=== PATIENT | female | born 1945 | race Caucasian/White ===

== ENCOUNTER 2019-05-10 16:21 | Emergency (ER) | payer MEDICARE ==
[~2019-05-10] VITALS: Ht 142.2 cm; Wt 54.4 kg
[2019-05-10] MEDS ORDERED: TRIA50 PO (16:59)
[2019-05-10] MEDS ORDERED: CARV6.25 PO (17:00)
[2019-05-10] MEDS ORDERED: CITA20 PO (17:00)
[2019-05-10] MEDS ORDERED: ZOCOR20 MG PO (17:00)
[2019-05-10] MEDS ORDERED: ZYRTEC10 M2 PO (17:01)
[2019-05-10] MEDS ORDERED: Loperamide2 MG PO (17:01)
[2019-05-10] MEDS ORDERED: BUDE6HFA INH (17:02)
[2019-05-10] MEDS ORDERED: LIDOCAINE28.35 GM TOP (17:38)
== END 2019-05-10 19:35 | disposition home or self-care (01) ==
LOC: EDBD 16:21 → ER 16:21
DX: R20.8 Other disturbances of skin sensation (principal); J44.9 Chronic obstructive pulmonary disease, unspecified; I10 Essential (primary) hypertension; F17.200 Nicotine dependence, unspecified, uncomplicated; Z88.0 Allergy status to penicillin; Z79.899 Other long term (current) drug therapy
CPT/HCPCS: 70450; 99284-25

== ENCOUNTER 2021-01-25 14:20 | Day surgery (SDC) | payer MEDICARE ==
[~2021-01-25] VITALS: Ht 142.2 cm; Wt 46.5 kg
[~2021-01-25 14:20] MED LIST: ALBU90OI; BUDE6HFA INH; BUPR150ER; CARV6.25 PO; CITA20 PO; HAIR, SKIN AND1 EAC3; LIDOCAINE28.35 GM TOP; Loperamide2 MG PO; NICO21TP; TRIA50 PO; Vitamin D1000 UNI1; ZOCOR20 MG PO; ZYRTEC10 M2 PO
--- NOTE | 2021-01-25 15:11 | NUR ---
Ambulatory in Day Surgery Patient states colon prep results clear. History, Chart, Medications and Allergies reviewed before start of procedure. Pre-Op teaching done. Pt verbalizes understanding. Patient States Post-Procedure ride home has been arranged.
--- NOTE | 2021-01-25 16:44 | NUR ---
01/25/21 1644 Siobhan Quiroga History, Chart, Medications and Allergies reviewed before start of procedure.MONITOR INTACT WITH CONTINUOUS PULSE OXIMETRY AND INTERMITTENT BP.O2 VIA N/C INTACT THROUGHOUT SEDATION/PROCEDURE. 3-LEAD EKG REVIEWED WITH PHYSICIAN PRIOR TO START OF PROCEDURE.PATIENT DETERMINED TO BE ASA APPROPRIATE FOR PROPOFOL SEDATION PRIOR TO START OF PROCEDURE BY
--- NOTE | 2021-01-25 18:07 | NUR ---
Patient up to Ambulate independently. Gait steady. Discharge instructions reviewed with patient. Patient verbalizes understanding. Copy given to patient to take home. Discharged via wheelchair to private car for ride home WITH SON.
== END 2021-01-25 22:45 | disposition home or self-care (01) ==
LOC: ORSCMMR 14:20 → ORSCSDS 15:15 → ORSCMMR 15:30 → ORSCSDS 15:30 → ORSCMMR 22:45
PROVIDERS: Surgery
PROC: 0DBP8ZX Excision of Rectum, Via Natural or Artificial Opening Endoscopic, Diagnostic (ICD-10-PCS; principal; 2021-01-25 15:15)
PROC: 0DBH8ZX Excision of Cecum, Via Natural or Artificial Opening Endoscopic, Diagnostic (ICD-10-PCS; principal; 2021-01-25 15:15)
DX: K62.5 Hemorrhage of anus and rectum (principal); D12.0 Benign neoplasm of cecum; J44.9 Chronic obstructive pulmonary disease, unspecified; I10 Essential (primary) hypertension; E78.5 Hyperlipidemia, unspecified; Z87.891 Personal history of nicotine dependence; Z79.899 Other long term (current) drug therapy
CPT/HCPCS: J2704; J7120

== ENCOUNTER 2021-02-23 09:09 | Day surgery (SDC) | payer MEDICARE ==
[~2021-02-23] VITALS: Ht 142.2 cm; Wt 47.6 kg
[~2021-02-23 09:09] MED LIST changes: -ALBU90OI; +ALBU90OI INH; -BUPR150ER; +BUPR150ER PO; -HAIR, SKIN AND1 EAC3; +HAIR, SKIN AND1 EAC3 PO; -NICO21TP; +NICO21TP TOP; -Vitamin D1000 UNI1; +Vitamin D1000 UNI1 PO
--- NOTE | 2021-02-23 11:10 | NUR ---
Ambulatory in Day SurgeryBair Paws warming gown applied. History, Chart, Medications and Allergies reviewed before start of procedure.Lungs clear T/O to Auscultation. Patient confirms NPO status and agrees with scheduled surgery. Pre-Op teaching done. Pt verbalizes understanding. Patient States Post-Procedure ride home has been arranged.
--- NOTE | 2021-02-23 13:00 | NUR ---
PT DENIES PAIN. TOLERATES FLUIDS, PUDDING AND CHIPS. REVIEWED DISCHARGE INSTRUCTIONS WITH PT. PT DENIES QUESTIONS. IV DC'D INTACT.
--- NOTE | 2021-02-23 13:10 | NUR ---
Patient States Post-Procedure ride home has been arranged. Discharged via wheelchair to private car for ride home.
== END 2021-02-23 13:13 | disposition home or self-care (01) ==
LOC: ORSCMMR 09:09 → ORD 10:45 → ORSCMMR 10:45
PROVIDERS: Surgery
PROC: 0DJD8ZZ Inspection of Lower Intestinal Tract, Via Natural or Artificial Opening Endoscopic (ICD-10-PCS; principal; 2021-02-23 10:45)
DX: K62.89 Other specified diseases of anus and rectum (principal); D12.8 Benign neoplasm of rectum; I10 Essential (primary) hypertension; E78.00 Pure hypercholesterolemia, unspecified; J44.9 Chronic obstructive pulmonary disease, unspecified; Z87.891 Personal history of nicotine dependence; Z79.899 Other long term (current) drug therapy
CPT/HCPCS: 88305; J0171; J2250; J2704; J3010; J7120

== ENCOUNTER 2021-06-14 18:14 | Emergency (ER) | payer MEDICARE ==
[~2021-06-14] VITALS: Ht 142.2 cm; Wt 49.0 kg
== END 2021-06-14 19:14 | disposition home or self-care (01) ==
LOC: ER 18:14
DX: S00.03XA Contusion of scalp, initial encounter (principal); S00.83XA Contusion of other part of head, initial encounter; Z88.0 Allergy status to penicillin; J44.9 Chronic obstructive pulmonary disease, unspecified; I10 Essential (primary) hypertension; Z79.899 Other long term (current) drug therapy; Z87.891 Personal history of nicotine dependence; W01.0XXA Fall on same level from slipping, tripping and stumbling without subsequent striking against object, initial encounter
CPT/HCPCS: 70450; 99283-25

== ENCOUNTER 2022-01-22 12:51 | Inpatient (IN) | payer MEDICARE ==
[~2022-01-22] VITALS: Ht 160 cm; Wt 49.9 kg
[~2022-01-22 12:51] MED LIST changes: -CARV6.25 PO; +Carvedilol12.5 MG PO
[2022-01-22 14:11] LABS: BASOPHILS ABSOLUTE AUTO 0.03 K/mm3 (0.00-0.23); BASOPHILS PERCENT AUTO 0 % (0-2); EOSINOPHILS ABSOLUTE AUTO 0.27 K/mm3 (0.00-0.68); EOSINOPHILS PERCENT AUTO 4 % (0-6); Hematocrit 37.8 % (33.0-51.0); Hemoglobin 12.4 g/dL (11.5-16.0); IMMATURE GRAN ABSOLUTE AUTO 0.06 K/mm3 (0.00-0.10); IMMATURE GRAN PERCENT AUTO 1 % (0-1); LYMPHOCYTES ABSOLUTE AUTO 1.46 K/mm3 (0.84-5.20); LYMPHOCYTES PERCENT AUTO 21 % (21-46); MONOCYTES ABSOLUTE AUTO 0.71 K/mm3 (0.16-1.47); MONOCYTES PERCENT AUTO 10 % (4-13); Mean Corpuscular HGB Conc 32.8 g/dL (31.5-36.5); Mean Corpuscular Volume 97 fL (80-100); Mean Platelet Volume 9.4 fL (9.1-12.4); NEUTROPHILS ABSOLUTE AUTO 4.45 K/mm3 (1.96-9.15); NEUTROPHILS PERCENT AUTO 64 % (41-73); Platelet Count 224 K/mm3 (150-400); RDW Coefficient Variation 12.8 % (11.7-14.2); RDW Standard Deviation 45.4 fL (35.1-46.3); Red Blood Cell Count 3.88 M/mm3 (3.80-5.20); White Blood Cell Count 6.98 K/mm3 (4.00-11.30)
[2022-01-22 14:31] LABS: Albumin, Blood 3.5 g/dL (3.4-5.0); Bilirubin, Total 0.4 mg/dL (0.1-1.0); Bun/Creatinine Ratio 28.6 (12.0-20.0); Calcium, Blood 9.4 mg/dL (8.5-10.1); Creatinine, Blood 0.53 mg/dL (0.40-1.00); Globulin, Blood 3.5 g/dL (2.2-4.0); Potassium, Blood 4.1 mmol/L (3.5-5.5)
[2022-01-22 17:03] LABS: Influenza A, PCR NEGATIVE (NEGATIVE); Influenza B, PCR NEGATIVE (NEGATIVE); Resp Syncytial Virus, PCR NEGATIVE (NEGATIVE); SARS-Cov-2 (COVID-19) PCR, MMC NEGATIVE (NEGATIVE)
--- NOTE | 2022-01-22 22:49 | NUR ---
ADMIT NOTE 76 YR OLD FEMALE ADMITTED TO FLOOR FROM THE ED WITH DX COPD WITH ACUTE EXACERBATION. ALERT AND ORIENTED. UP WITH ASSIST. ON O2 PER NC. RT WAS AT BEDSIDE TO EVAL AND TREAT. CALL LIGHT IN REACH. LUNG SOUNDS DIMINISHED TO AUSCULTATION. CALL LIGHT IN REACH.
--- NOTE | 2022-01-23 03:27 | NUR ---
JEWEL BEARING BROACHER SUMMARY WAS ADMITTED EARLIER IN THE SHIFT WITH DX OF ACUTE EXACERBATION OF COPD. PLACED ON O2 AND RECEIVED MEDS TO HELP WITH BREATHING - SEE MAR FOR DETAILS. REQUESTED AND RECEIVED SNACK AT BEDTIME. HAS BEEN RSTING QUIETLY WITH FEW INTERUPTIONS SINCE. LUNG SOUNDS DIMINISHED IN ALL LOBES PER AUSCULTATION. CALL LIGHT IN REACH. WILL CONTINUE TO MONITOR. VSS.
[2022-01-23 05:08] LABS: BASOPHILS ABSOLUTE AUTO 0.01 K/mm3 (0.00-0.23); BASOPHILS PERCENT AUTO 0 % (0-2); EOSINOPHILS PERCENT AUTO 0 % (0-6); Hematocrit 39.3 % (33.0-51.0); Hemoglobin 13.1 g/dL (11.5-16.0); IMMATURE GRAN ABSOLUTE AUTO 0.02 K/mm3 (0.00-0.10); IMMATURE GRAN PERCENT AUTO 0 % (0-1); LYMPHOCYTES PERCENT AUTO 16 % (21-46); MONOCYTES ABSOLUTE AUTO 0.05 K/mm3 (0.16-1.47); MONOCYTES PERCENT AUTO 1 % (4-13); Mean Corpuscular HGB 32.2 pg (26.0-34.0); Mean Corpuscular HGB Conc 33.3 g/dL (31.5-36.5); Mean Corpuscular Volume 97 fL (80-100); Mean Platelet Volume 9.4 fL (9.1-12.4); NEUTROPHILS ABSOLUTE AUTO 4.04 K/mm3 (1.96-9.15); NEUTROPHILS PERCENT AUTO 82 % (41-73); Platelet Count 238 K/mm3 (150-400); RDW Coefficient Variation 12.8 % (11.7-14.2); RDW Standard Deviation 45.5 fL (35.1-46.3); Red Blood Cell Count 4.07 M/mm3 (3.80-5.20); White Blood Cell Count 4.92 K/mm3 (4.00-11.30)
[2022-01-23 05:28] LABS: Albumin, Blood 3.1 g/dL (3.4-5.0); Albumin/Globulin Ratio 0.8 (0.8-1.8); Bilirubin, Total 0.4 mg/dL (0.1-1.0); Bun/Creatinine Ratio 32.4 (12.0-20.0); Calcium, Blood 9.1 mg/dL (8.5-10.1); Creatinine, Blood 0.62 mg/dL (0.40-1.00); Globulin, Blood 3.8 g/dL (2.2-4.0); Potassium, Blood 4.1 mmol/L (3.5-5.5); Total Protein, Blood 6.9 g/dL (6.4-8.2)
--- NOTE | 2022-01-23 19:36 | NUR ---
SHIFT SUMMARY 76-YEAR-OLD FEMALE, A&O X4. 1-PERSON ASSIST. 20G TO R WRIST. RA AT HOME, 2L NC AT THIS TIME. TELEMETRY SR BBB, HR 71. FALL AT HOME ON 01/16 WHERE SHE DISLOCATED L SHOULDER WITH REDUCTION, CURRENTLY IN SLING. DENIES PAIN. SKIN TEAR TO L SHOULDER WITH FLAP INTACT, COVERED WITH MEPILEX. PT AND OT ORDERED. CONTINUE TO MONITOR.
--- NOTE | 2022-01-24 04:27 | NUR ---
SHIFT SUMMARY; PT IS AXO X4, PT IS PLEASANT AND WAS COOPERATIVE WITH CARE THROUGHOUT THE NIGHT. PT IS CURRENTLY ON 2L O2 VIA NC, COMPARED TO THE PTS BASELINE OF RA AT HOME. THE PTS LUNG SOUNDS REMIAN DIMINISHED UPON AUSCULTATION. THE PT RESTED IN BED ALL NIGHT ALTHOUGH SHE DID NOT ACTUALLY SLEEP MUCH. PT HAD NO ACUTE MEDICAL CHANGES OVERNIGHT. PTS SLING REMAINS IN PLACE ON THE L ARM. WELL THE MEPILEX ON THE L ELBOW REMAINS INTACT OVER THE SKIN TEAR. PT IS CURRENTLY RESTING IN BED WITH THE BED IN THE LOWEST POSITION AND THE CALL LIGHT IN HAND.
[2022-01-24] MEDS ORDERED: FLUTICASONE-SA1 EAC2 INH (13:12)
[2022-01-24] MEDS ORDERED: IPRAT-ALBUT 0.5-3 ML INH (13:14)
[2022-01-24] MEDS ORDERED: Prednisone10 MG PO (13:15)
--- NOTE | 2022-01-24 15:30 | NUR ---
DISCHARGE SUMMARY PATIENT IS ALERT AND ORIENTED. PATIENT HAS HAD NO ACUTE EVENTS THIS SHIFT. VITAL SIGNS WERE REVIEWED. PATIENT HAS BEEN IND IN ROOM THIS SHIFT. PATIENT DOES NOT REQUIRED HOME 02 PER RT. PATIENT IS BEING DISCHARGED HOME WITH SON TRANSPORTING.
== END 2022-01-24 15:12 | disposition home or self-care (01) | DRG 189 ==
LOC: ER 12:51 → MEDS 12:52
PROVIDERS: Physician Assistant; Student in an Organized Health Care Education/Training Program; ADMIT Internal Medicine
DX: J96.01 Acute respiratory failure with hypoxia (principal); J44.1 Chronic obstructive pulmonary disease with (acute) exacerbation; J84.9 Interstitial pulmonary disease, unspecified; R64 Cachexia; Z68.1 Body mass index [BMI] 19.9 or less, adult; I10 Essential (primary) hypertension; R26.9 Unspecified abnormalities of gait and mobility; Z51.5 Encounter for palliative care; I44.7 Left bundle-branch block, unspecified; S43.005D Unspecified dislocation of left shoulder joint, subsequent encounter; Z88.0 Allergy status to penicillin; Z91.013 Allergy to seafood; Z79.899 Other long term (current) drug therapy; Z87.891 Personal history of nicotine dependence; Z79.51 Long term (current) use of inhaled steroids; Z20.822 Contact with and (suspected) exposure to COVID-19
CPT/HCPCS: 0241U; 36415; 71046; 73070; 80053; 83880; 84484; 85025; 93005; 93010; 94640; 94664; 94760; 94761; 96372; 96374; 96375; 96376; 97116; 97162; 97165; 97530; 97535; 99285-25; A9270; G0378; J1100; J1650; J2930

== ENCOUNTER 2022-09-07 08:07 | Day surgery (SDC) | payer MEDICARE ==
[~2022-09-07] VITALS: Ht 142.2 cm; Wt 46.9 kg
[~2022-09-07 08:07] MED LIST changes: +FLUTICASONE-SA1 EAC2 INH; +IPRAT-ALBUT 0.5-3 ML INH; +Prednisone10 MG PO
[2022-09-07 08:53] VITALS: BP 152/88
--- NOTE | 2022-09-07 09:08 | NUR ---
09/07/22 0[address] Trejo [address]B PER DR. TEJADA. WARM BLANKETS PROVIDED X3. PT COMFORTABLE CAN BE. NO QUESTIONS OR CONCERNS AT THIS TIME. AFTER DISCUSSION WITH DR. TEJADA PT ELECTS TO PROCEED WITH BLOCK OF LEFT SHOULDER.
== END 2022-09-07 09:50 | disposition home or self-care (01) ==
LOC: ORSCSDS 08:07
DX: S46.002A Unspecified injury of muscle(s) and tendon(s) of the rotator cuff of left shoulder, initial encounter (principal); Z53.9 Procedure and treatment not carried out, unspecified reason
CPT/HCPCS: A9270; J0171; J0690; J2250; J2704; J3010

== ENCOUNTER 2022-12-29 19:25 | Inpatient (IN) | payer MEDICARE ==
[~2022-12-29] VITALS: Ht 139.7 cm; Wt 45.4 kg
[2022-12-29 20:32] LABS: BASOPHILS ABSOLUTE AUTO 0.05 K/mm3 (0.00-0.23); BASOPHILS PERCENT AUTO 1 % (0-2); EOSINOPHILS PERCENT AUTO 2 % (0-6); Hematocrit 32.1 % (33.0-51.0); Hemoglobin 10.4 g/dL (11.5-16.0); IMMATURE GRAN ABSOLUTE AUTO 0.04 K/mm3 (0.00-0.10); IMMATURE GRAN PERCENT AUTO 1 % (0-1); LYMPHOCYTES ABSOLUTE AUTO 1.79 K/mm3 (0.84-5.20); LYMPHOCYTES PERCENT AUTO 21 % (21-46); MONOCYTES ABSOLUTE AUTO 0.87 K/mm3 (0.16-1.47); MONOCYTES PERCENT AUTO 10 % (4-13); Mean Corpuscular HGB 30.5 pg (26.0-34.0); Mean Corpuscular HGB Conc 32.4 g/dL (31.5-36.5); Mean Corpuscular Volume 94 fL (80-100); Mean Platelet Volume 9.3 fL (9.1-12.4); NEUTROPHILS PERCENT AUTO 66 % (41-73); Platelet Count 241 K/mm3 (150-400); RDW Coefficient Variation 12.7 % (11.7-14.2); RDW Standard Deviation 43.6 fL (35.1-46.3); Red Blood Cell Count 3.41 M/mm3 (3.80-5.20); White Blood Cell Count 8.75 K/mm3 (4.00-11.30)
[2022-12-29 20:56] LABS: Albumin, Blood 3.4 g/dL (3.4-5.0); Albumin/Globulin Ratio 0.9 (0.8-1.8); Bilirubin, Total 0.6 mg/dL (0.1-1.0); Calcium, Blood 8.8 mg/dL (8.5-10.1); Creatinine, Blood 0.78 mg/dL (0.40-1.00); Globulin, Blood 3.6 g/dL (2.2-4.0); Potassium, Blood 3.7 mmol/L (3.5-5.5)
[2022-12-30 02:19] LABS: Base Excess Venous 1.6 mmol/L; Bicarbonate Venous 25.5 mmol/L (24.0-30.0); PCO2 Venous 46.2 mmHg (38-42); pH Blood Venous 7.37 (7.34-7.37)
[2022-12-30 04:02] VITALS: BP 145/94
--- NOTE | 2022-12-30 04:32 | NUR ---
SHIFT SARA, PT ARRIVED AND WAS TRANSFRED TO BED FROM [facility] WITH SHEET AND 3 PERSON TRANSFER. PT ALERT ORIENTED BUT VERY FORGETFULL. PT VERY WET CLOTHING CHANGED OLD BEDDING REMOVED NEW PURE WICK PLACED . SCDS APPLYED. RT CAME AND PLACED CONTIUSE PULSE OX ON AND GAVE AN RT TX. PT HAS ON AN IMOBILIZER FROM A SHOULDER SURGERY FIVE DAYS AGO TO HER LEFT ARM/SHOLDER, CMS GOOD. SKIN INTACT . PT HAS CORNS TO BILAT BOTTOMS OF HER FEET. PT CAN NNOT TELL WHAT MEDS SHE TALKES AT HOME , BUT SAID SON COULD BRING IN A LIST OF MEDICATIONS. CALL LIGHT IN REACH.
[2022-12-30 05:07] LABS: BASOPHILS ABSOLUTE AUTO 0.03 K/mm3 (0.00-0.23); BASOPHILS PERCENT AUTO 0 % (0-2); EOSINOPHILS ABSOLUTE AUTO 0.01 K/mm3 (0.00-0.68); EOSINOPHILS PERCENT AUTO 0 % (0-6); Hematocrit 32.7 % (33.0-51.0); Hemoglobin 10.7 g/dL (11.5-16.0); IMMATURE GRAN ABSOLUTE AUTO 0.09 K/mm3 (0.00-0.10); IMMATURE GRAN PERCENT AUTO 1 % (0-1); LYMPHOCYTES ABSOLUTE AUTO 0.93 K/mm3 (0.84-5.20); LYMPHOCYTES PERCENT AUTO 10 % (21-46); MONOCYTES ABSOLUTE AUTO 0.26 K/mm3 (0.16-1.47); MONOCYTES PERCENT AUTO 3 % (4-13); Mean Corpuscular HGB 30.1 pg (26.0-34.0); Mean Corpuscular HGB Conc 32.7 g/dL (31.5-36.5); Mean Corpuscular Volume 92 fL (80-100); Mean Platelet Volume 9.2 fL (9.1-12.4); NEUTROPHILS ABSOLUTE AUTO 8.12 K/mm3 (1.96-9.15); NEUTROPHILS PERCENT AUTO 86 % (41-73); Platelet Count 269 K/mm3 (150-400); RDW Coefficient Variation 12.5 % (11.7-14.2); RDW Standard Deviation 42.4 fL (35.1-46.3); Red Blood Cell Count 3.56 M/mm3 (3.80-5.20); White Blood Cell Count 9.44 K/mm3 (4.00-11.30)
[2022-12-30 05:28] LABS: Albumin, Blood 3.4 g/dL (3.4-5.0); Albumin/Globulin Ratio 0.9 (0.8-1.8); Bilirubin, Total 0.9 mg/dL (0.1-1.0); Bun/Creatinine Ratio 17.3 (12.0-20.0); Calcium, Blood 8.8 mg/dL (8.5-10.1); Creatinine, Blood 0.75 mg/dL (0.40-1.00); Globulin, Blood 3.8 g/dL (2.2-4.0); Potassium, Blood 3.4 mmol/L (3.5-5.5); Total Protein, Blood 7.2 g/dL (6.4-8.2)
[2022-12-30 07:36] VITALS: BP 126/74
[2022-12-30 14:32] VITALS: BP 134/80
--- NOTE | 2022-12-30 17:38 | NUR ---
SHIFT SUMMARY PATIENT TITRATED TO 2LITERS O2 VIA NC, CONTINUOUS PULSE OX IN PLACE. PUREWICK IN USE AT THIS TIME FOR DIURESING. SHOULDER HAS DRESSING IN PLACE AND IMMOBILIZER IN PLACE, NO C/O PAIN THIS SHIFT. GIVEN ZOFRAN FOR NAUSEA AND VOMITING. WILL CONTINUE TO MONITOR
[2022-12-30 19:41] VITALS: BP 103/83
[2022-12-31 03:16] VITALS: BP 129/75
--- NOTE | 2022-12-31 04:49 | NUR ---
SHIFT SUMMARY: NO ACUTE EVENTS. ON O2 @ 2 L/MIN NC, WITH O2 SATS 92-94%. A&O X 4, PLEASANT. MEDICATED WITH TYLENOL FOR L SHOULDER PAIN WITH ADEQUATE RELIEF. PUREWICK IN PLACE FOR URINE. SON BROUGHT PT HER EYE GLASSES. DRESSING ON L SHOULDER CD&I, ARM IN SLING.
[2022-12-31 05:02] LABS: Bun/Creatinine Ratio 22.3 (12.0-20.0); Calcium, Blood 8.8 mg/dL (8.5-10.1); Creatinine, Blood 0.76 mg/dL (0.40-1.00); Potassium, Blood 3.7 mmol/L (3.5-5.5)
[2022-12-31 07:54] VITALS: BP 131/70
[2022-12-31 15:12] VITALS: BP 125/66
--- NOTE | 2022-12-31 17:16 | NUR ---
SHIFT SUMMARY PATIENT C/O HANDS SHAKING THIS SHIFT, ASKED DOC TO RESTART WELLBUTRIN AND CELEXA. C/O NAUSEA AND VOMITING, GIVEN ZOFRAN WITH MODERATE RELIEF. ABLE TO TOLERATE SITTING IN CHAIR AND AMBULATING TO BATHROOM. O2 AT 1 LITER NC. WILL CONTINUE TO MONITOR
[2022-12-31 20:17] VITALS: BP 142/82
[2023-01-01 04:16] VITALS: BP 142/75
--- NOTE | 2023-01-01 05:41 | NUR ---
Rn shift summary: Patient is alert and oriented. Patient was up in the chair at beginning of shift. Patient is able to take her meds whole with water but needs a cracker to help them "not stick in her throat". Patient is a SBA with walker to the BR. Pt was frightened by her next door neighbor who was yelling and making a lot of noise. Pt reassured, other pts door closed. Pt remains on 1 liter O2. Left arm /shoulder support splint in place, with drsg to arm C/D/I. Patient has good CMS to left hand. Pt received tylenol at beginning of shift with good relief. Has rested on and off. Lungs clear, has a dry cough. Plan is to start p.o.prednisone today. Pt states she could possibly DC today. Call light in reach. Able to make needs known.
[2023-01-01 07:53] VITALS: BP 136/75
[2023-01-01] MEDS ORDERED: ACET325 PO (15:22)
[2023-01-01] MEDS ORDERED: CARV3.125 PO (15:23)
[2023-01-01] MEDS ORDERED: FAMO20 PO (15:23)
[2023-01-01] MEDS ORDERED: PRED20 PO (15:24)
--- NOTE | 2023-01-01 17:32 | NUR ---
1615- PT DC IN STABLE CONDITION FROM HOSPITAL ON 2 L OXYGEN. O2 ARRIVED FOR DELIVERY PRIOR TO LEAVING HOSPITAL. PT LEFT WITH ALL BELONGINGS WITH SON.
== END 2023-01-01 17:11 | disposition home or self-care (01) | DRG 189 ==
LOC: ER 19:25 → MEDS 19:26 → ERHOLD 19:26 → MEDS 12-30 03:25 → ENPENDDIS 01-01 11:15 → MEDS 01-01 17:11
PROVIDERS: Emergency Medicine; Internal Medicine; ADMIT Student in an Organized Health Care Education/Training Program
DX: J96.01 Acute respiratory failure with hypoxia (principal); R11.0 Nausea; K29.70 Gastritis, unspecified, without bleeding; J20.9 Acute bronchitis, unspecified; F32.A Depression, unspecified; R79.1 Abnormal coagulation profile; J43.9 Emphysema, unspecified; I50.9 Heart failure, unspecified; E87.6 Hypokalemia; I11.0 Hypertensive heart disease with heart failure; Z88.0 Allergy status to penicillin; Z91.013 Allergy to seafood; Z79.899 Other long term (current) drug therapy; Z79.52 Long term (current) use of systemic steroids; Z90.49 Acquired absence of other specified parts of digestive tract; Z98.49 Cataract extraction status, unspecified eye; Z98.890 Other specified postprocedural states; Z87.891 Personal history of nicotine dependence
CPT/HCPCS: 36415; 71045; 71260; 80048; 80053; 82803; 83735; 83880; 84484; 85025; 93306; 94640; 94664; 94761; 94762; 96365; 96372; 96374-59; 96375-59; 96376; 99285-25; A9270; G0378; J0456; J1650; J1940; J2405; J2930; J7050; J7512; J7626; Q9967

== ENCOUNTER 2023-03-23 04:06 | Inpatient (IN) | payer MEDICARE ==
[~2023-03-23] VITALS: Ht 142.2 cm; Wt 42.9 kg
[~2023-03-23 04:06] MED LIST changes: +ACET325 PO; +CARV3.125 PO; +FAMO20 PO; +PRED20 PO
[2023-03-23 05:41] LABS: Albumin/Globulin Ratio 0.8 (0.8-1.8); Bilirubin, Total 1.4 mg/dL (0.1-1.0); Bun/Creatinine Ratio 17.9 (12.0-20.0); Calcium, Blood 8.8 mg/dL (8.5-10.1); Creatinine, Blood 0.67 mg/dL (0.40-1.00); Globulin, Blood 3.9 g/dL (2.2-4.0); Magnesium, Blood 1.9 mg/dL (1.6-2.4); Phosphorus, Blood 1.8 mg/dL (2.5-4.9); Potassium, Blood 3.5 mmol/L (3.5-5.5); Total Protein, Blood 6.9 g/dL (6.4-8.2)
[2023-03-23 06:22] LABS: Source, Urine Clean Catch
[2023-03-23 06:28] LABS: Appearance, Urine Clear (Clear); Blood, Urine 1+ (Neg); Color, Urine Yellow (P-Yellow); Glucose Qualitative, Urine Neg (Neg); Ketones, Urine Neg (Neg); Leukocyte Esterase, Urine Neg (Neg); Nitrite, Urine Neg (Neg); Protein, Urine 2+ (Neg); Urobilinogen, Urine 3+ (Normal)
[2023-03-23 06:45] LABS: Bilirubin, Urine 1+ (Neg)
[2023-03-23 06:48] LABS: Bacteria Few /hpf; Red Blood Cells, Urine 0-2 /hpf (0-2); Squamous Epithelial Cells Few /hpf (Few); White Blood Cells, Urine 0-2 /hpf (0-5)
[2023-03-23 06:56] LABS: U Amphetamine Screen Not Detected; U Barbituate Screen Not Detected; U Benzodiazapine Screen Not Detected; U Buprenorphine Screen Not Detected; U Cannabinoids Screen Not Detected; U Cocaine Screen Not Detected; U Methadone Screen Not Detected; U Methamphetamine Screen Not Detected; U Opiates Screen Not Detected; U Oxycodone Screen Not Detected; U Phencyclidine Screen Not Detected
[2023-03-23 07:10] LABS: D-Dimer, Quantitative 2.19 mg/L FEU (0.00-0.52); International Normalized Ratio 1.17; Prothrombin Time Results 12.2 Sec (9.7-11.5)
[2023-03-23 07:14] LABS: Influenza A, PCR NEGATIVE (NEGATIVE); Influenza B, PCR NEGATIVE (NEGATIVE); Resp Syncytial Virus, PCR NEGATIVE (NEGATIVE); SARS-Cov-2 (COVID-19) PCR, MMC NEGATIVE (NEGATIVE)
[2023-03-23 07:53] LABS: BASOPHILS ABSOLUTE AUTO 0.02 K/mm3 (0.00-0.23); BASOPHILS PERCENT AUTO 0 % (0-2); EOSINOPHILS PERCENT AUTO 0 % (0-6); Hematocrit 33.2 % (33.0-51.0); IMMATURE GRAN ABSOLUTE AUTO 0.03 K/mm3 (0.00-0.10); IMMATURE GRAN PERCENT AUTO 0 % (0-1); LYMPHOCYTES ABSOLUTE AUTO 0.55 K/mm3 (0.84-5.20); LYMPHOCYTES PERCENT AUTO 7 % (21-46); MONOCYTES ABSOLUTE AUTO 0.67 K/mm3 (0.16-1.47); MONOCYTES PERCENT AUTO 9 % (4-13); Mean Corpuscular HGB 29.7 pg (26.0-34.0); Mean Corpuscular HGB Conc 33.1 g/dL (31.5-36.5); Mean Corpuscular Volume 90 fL (80-100); Mean Platelet Volume 9.3 fL (9.1-12.4); NEUTROPHILS ABSOLUTE AUTO 6.14 K/mm3 (1.96-9.15); NEUTROPHILS PERCENT AUTO 83 % (41-73); Platelet Count 233 K/mm3 (150-400); RDW Coefficient Variation 12.2 % (11.7-14.2); RDW Standard Deviation 40.4 fL (35.1-46.3); White Blood Cell Count 7.41 K/mm3 (4.00-11.30)
[2023-03-23 16:08] VITALS: BP 93/56
[2023-03-23 16:11] VITALS: BP 91/60
--- NOTE | 2023-03-23 17:01 | NUR ---
PATIENT SCHEDULED COREG DOSE AT 1700, VITALS TAKEN; BP ON R ARM 93/56 c HR OF 68 BPM, BP ON L ARM 91/60 c HR OF [address] MCINTYRE REGARDING THIS ISSUE. RECEIVED ORDER FROM DR. MCINTYRE TO HOLD COREG DOSE AND INFUSED NS BOLUS 500 MLS NOW.
[2023-03-23 18:41] VITALS: BP 126/58
[2023-03-23 18:43] VITALS: BP 116/76
--- NOTE | 2023-03-23 18:44 | NUR ---
SHIFT SUMMARY: PATIENT HAD SYNCOPY EPISODE AT HOME, ADMITTED c DX'S OF ELEVATED TROPONIN. PATIENT A/OX4, ANSWER TO QUESTIONS APPROPRIATELY AND ABLE TO MAKE NEEDS KNOWN. PATIENT DENIES CP/PRESSURE/THIGHTNESS, SOB, DIZZINESS AND N/V. PATIENT ON TELE, NSR HR IN THE MID 70'S BPM. PATIENT ON 2L OF O2 AT BASELINE. PATIENT TROPONIN CONTINUES TRENDING DOWN, LAST TROPONIN VALUE WAS 238. DR. MCINTYRE AND [employer] SERVICES MANAGER, HUMBERTO IS AWARE OF THIS ISSUES. PATIENT HAD EKG DONE THIS PM. PATIENT SBP WAS IN THE 90'S AT AROUND 1700, COREG DOSE WAS HELD PER ORDER AND ADMINISTER OT NS 500 BOLUS. PATIENT RESPONDING WELL c OT BOLUS, VITALS TAKEN AFTER BOLUS; BP TAKEN ON L ARM 116/76, HR OF 85 BPM AND BP TAKEN ON R ARM 126/58 c HR OF 86 BPM. PATIENT IS CONTINENCE OF BLADDER AND USES [facility] c 1 ASSIST. PIV TO R FOREARM AND RAC SALINE LOCKED. BED ALARM ON FOR SAFETY. CALL LIGHT IN REACH.
[2023-03-23 20:18] VITALS: BP 108/64
[2023-03-24 02:12] VITALS: BP 121/77
[2023-03-24 05:18] LABS: BASOPHILS ABSOLUTE AUTO 0.03 K/mm3 (0.00-0.23); BASOPHILS PERCENT AUTO 0 % (0-2); EOSINOPHILS ABSOLUTE AUTO 0.14 K/mm3 (0.00-0.68); EOSINOPHILS PERCENT AUTO 2 % (0-6); Hematocrit 30.9 % (33.0-51.0); Hemoglobin 10.1 g/dL (11.5-16.0); IMMATURE GRAN ABSOLUTE AUTO 0.02 K/mm3 (0.00-0.10); IMMATURE GRAN PERCENT AUTO 0 % (0-1); LYMPHOCYTES ABSOLUTE AUTO 1.68 K/mm3 (0.84-5.20); LYMPHOCYTES PERCENT AUTO 23 % (21-46); MONOCYTES ABSOLUTE AUTO 0.83 K/mm3 (0.16-1.47); MONOCYTES PERCENT AUTO 11 % (4-13); Mean Corpuscular HGB 29.9 pg (26.0-34.0); Mean Corpuscular HGB Conc 32.7 g/dL (31.5-36.5); Mean Corpuscular Volume 91 fL (80-100); Mean Platelet Volume 9.9 fL (9.1-12.4); NEUTROPHILS ABSOLUTE AUTO 4.63 K/mm3 (1.96-9.15); NEUTROPHILS PERCENT AUTO 63 % (41-73); Platelet Count 220 K/mm3 (150-400); RDW Coefficient Variation 12.5 % (11.7-14.2); RDW Standard Deviation 41.7 fL (35.1-46.3); Red Blood Cell Count 3.38 M/mm3 (3.80-5.20); White Blood Cell Count 7.33 K/mm3 (4.00-11.30)
[2023-03-24 05:34] LABS: Albumin, Blood 2.6 g/dL (3.4-5.0); Albumin/Globulin Ratio 0.8 (0.8-1.8); Bilirubin, Total 0.4 mg/dL (0.1-1.0); Bun/Creatinine Ratio 12.6 (12.0-20.0); Calcium, Blood 8.3 mg/dL (8.5-10.1); Creatinine, Blood 0.8 mg/dL (0.40-1.00); Globulin, Blood 3.3 g/dL (2.2-4.0); Potassium, Blood 3.2 mmol/L (3.5-5.5); Total Protein, Blood 5.9 g/dL (6.4-8.2)
[2023-03-24 08:06] VITALS: BP 136/89
[2023-03-24 16:55] VITALS: BP 121/69
--- NOTE | 2023-03-24 17:04 | NUR ---
SHIFT SUMMARY: PATIENT A/OX4, CALM, PLEASANT AND COOPERATIVE c CARE. PATIENT USES CALL LIGHT APPROPRIATELY AND ABLE TO MAKE NEEDS KNOWN. PATIENT DENIES CP/PRESSURE, SOB, N/V AND DIZZINESS. PATIENT STILL ON TELE SR HR IN THE 80'S BPM. PATIENT HAD ECHO DONE TODAY, AND NPO AT [place] FOR POSSIBLE ANGIOGRAM TOMORROW. PER DR. MCINTYRE HE ALREADY SPOKE TO DR. ROCHE REGARDING PLAN OF CARE. PATIENT IS AWARE OF THE PLAN AND AGREEABLE FOR THE POSSIBLE ANGIOGRAM TOMORROW 03/25/23. PATIENT IS CONTINENCE OF BOWELS/BLADDER, USES [facility] c SBA. PATIENT K 3.2, RECEIVED OT DOSE OF 40 MEQ K PO. PATIENT RECEIVED IV ABX AND SCHEDULED MEDS PER EMAR. PATIENT HAS NO COMPLAINTS OR DENIES ANY NEW CONCERNED THIS SHIFT. VITAL SIGNS REVIEWED. PIV TO R FOREARM AND LAC SALINE LOCKED. CALL LIGHT IN REACH.
[2023-03-24 19:22] VITALS: BP 134/86
[2023-03-25 03:28] VITALS: BP 146/83
--- NOTE | 2023-03-25 03:50 | NUR ---
1900: ASSUMED CARE OF PT. BEDSIDE REPORT RECEIVED FROM ABDIEL RN. PT IS A/O, BREATHING IS EVEN AND UNLABORED, NC AT 2LPM BASELINE. PLAN FOR ANGIOGRAM TOMORROW. PT EDUCATED ON S/S OF MA. UP TO THE BSC THROUOGHOUT THE NIGHT FREQUENTLY, CLEAR YELLOW URINE. UP TO THE BATHROOM SBA TO BRUSH HER TEETH, GAIT IS SLOW AND STEADY. TELEMETRY MAINTAINED WITH SINUS RHYTHM IN THE 80'S. PT REPORT DISCOMFORT TO SURGICAL REGION OF LEFT SHOULDER. DECLINES INTERVENTION. SAFETY MEASURES TAKEN, CALL LIGHT AND BEDSIDE TABEL WITHIN REACH. BED ALARM IS ON. NEEDS ADDRESSED THROUGHOUT SHIFT.
[2023-03-25 06:32] LABS: Albumin, Blood 2.7 g/dL (3.4-5.0); Albumin/Globulin Ratio 0.8 (0.8-1.8); Bilirubin, Total 0.3 mg/dL (0.1-1.0); Bun/Creatinine Ratio 13.6 (12.0-20.0); Calcium, Blood 9.1 mg/dL (8.5-10.1); Creatinine, Blood 0.74 mg/dL (0.40-1.00); Globulin, Blood 3.6 g/dL (2.2-4.0); Total Protein, Blood 6.3 g/dL (6.4-8.2)
[2023-03-25 08:00] VITALS: BP 143/85
[2023-03-25 10:15] LABS: HEPATITIS A ANTIBODY, IGM Negative (Negative); HEPATITIS B CORE ANTIBODY, IGM Negative (Negative); HEPATITIS B SURFACE ANTIGEN Negative (Negative); HEPATITIS C AB CIA INTERP Negative (Negative); HEPATITIS C ANTIBODY CIA INDEX 0.06 IV
--- NOTE | 2023-03-25 15:51 | NUR ---
SHIFT SUMMARY: PATIENT A/OX4. ANXIOUS AT BEGINNING OF SHIFT, PLEASANT AND COOPERATIVE c CARE. PATIENT USES CALL LIGHT APPROPRIATELY AND ABLE TO MAKE NEEDS KNOWN. PATIENT DENIES CP/PRESSURE, N/V, DIZZINESS AND SOB. PATIENT STILL ON TELE, SR HR IN THE 70'S BPM. PATIENT ON 2L OF O2 AT BASELINE. PATIENT HAS PRODUCTIVE COUGH c SPRING COLOR PLEGHM. PATIENT DID NOT HAVE AN ANGIOGRAM TODAY. PATIENT HAD HER 1ST PART OF STRESS TEST THIS PM. PATIENT WILL BE NPO AT [place] FOR THE 2ND PART OF STRESS TEST TOMORROW 03/26/23. PATIENT IS CONTINENCE OF BOWELS/BLADDER, USES BSC/BATHROOM c SBA AND FWW. PATIENT RECEIVED SCHEDULED MEDS PER EMAR. PATIENT HAS NO COMPLAINTS OR NO NEW CONCERN THIS SHIFT. VITAL SIGNS REVIEWED. PIV TO R FOREARM SALINE LOCKED. BED ALARM ON FOR SAFETY. CALL LIGHT IN REACH.
[2023-03-25 15:52] VITALS: BP 125/76
--- NOTE | 2023-03-25 17:56 | NUR ---
NOTE-2ND PART OF STRESS TEST: RECEIVED A CALL FROM HUNTER BELLO [facility], PER HUNTER," PATIENT CAN HAVE BREAKFAST TOMORROW 03/26/23, NO CAFFIENE, NO CHOCOLATE, NPO AFTER BREAKFAST EXCEPT WATER AND 2ND PART OF STRESS TEST WILL BE AT NOON AND PATIENT CAN HAVE LUNCH AFTER."
[2023-03-25 19:37] VITALS: BP 112/79
--- NOTE | 2023-03-26 03:41 | NUR ---
1900: ASSUMED CARE OF PT. BEDSIDE REPORT RECEVIED FROM DAY SHIFT RN. PT IS SITTING UP AT THE SIDE OF THE BED EATING HER DINNER. A/O. CHANGE OF CARE PLAN TODAY, ANGIOGRAM D/C AND NUC MED STRESS TEST PERFORMED PER REPORT. PLAN FOR LEXISCAN TOMORROW 03/26. PT VERBALIZED UNDERSTANDING OF THE PLAN. DURING THE SHIFT PT IS ABLE TO AMBULATE TO THE BATHROOM WITH SBA. OXYGEN ON AT 2LPM, BASLINE THERAPY. TELEMETRY IS MAINTAINED. NSR. PT HAS A NONPRODUCTIVE COUGH, DECLINES INTERVENTION. NO CHOCOLATE OR COFFEE OR AFTER MIDNIGHT, PLAN FOR NPO AFTER BREAKFAST. SAFETY MEASURES TAKEN, BED IS IN THE LOWEST POSITION, BED ALARM IN PLACE. NEEDS ADDRESSED THROUGHOUT SHIFT.
[2023-03-26 05:14] VITALS: BP 118/69
[2023-03-26 07:38] VITALS: BP 125/80
[2023-03-26 15:20] VITALS: BP 111/73
--- NOTE | 2023-03-26 18:38 | NUR ---
SHIFT SUMMARY A&O X 4, VSS. IS PLEASANT & COOPERATIVE WITH ALL CARE. STRESS TEST COMPLETED TODAY, WAS ABNORMAL, CARDIOLOGY PENDING FOR FOLLOW UP OF STRESS TEST ALTHOUGH CARDIOLOGY IS ALREADY ON CASE. ECHO DONE TODAY WELL. TROPS ARE TRENDING DOWN. PT DENIES CP. APPETITE IS GOOD. CALL LIGHT WITHIN REACH, IS ABLE TO MAKE NEEDS KNOWN. PLAN IS FOR CARDIOLOGY FOLLOW UP.
[2023-03-26 19:26] VITALS: BP 125/82
--- NOTE | 2023-03-27 04:01 | NUR ---
1900: ASSUMED CARE OF PT, REPORT RECEIVED FROM DAY SHIFT RN. PT IS A/O X4, LAYING IN BED WITH HOB ELEVATED. UP TO THE BSC WITH SBA TO VOID AT THIS TIME. BACK TO BED WITH MINIMAL ASSIST. PT DENIES PAIN OR DISCOMFORT. TELEMETRY IS MAINTAINED, DENIES SOB, DIZZINESS OR CHEST PAIN DURING THIS SHIFT. REPORTS BEING ANXIOUS REGARING THE RESULTS OF HER PENDING TESTS, AND THE NEWS THAT THERE MAY BE MINIMAL INTERVENTION POSSIBLE FROM THE AUGER PRESS OPERATOR PER PT. STATING THAT SHE IS TOO SMALL. TEA PROVIDED TO HELP WITH SLEEP. PT DENIES FURTHER NEEDS. SEE EMR FOR ROS AND MEDICATIONS PROVIDED. SAFETY MEASURES TAKEN, NEEDS ADDRESSED.
[2023-03-27 04:50] VITALS: BP 143/99
[2023-03-27 06:09] LABS: Albumin, Blood 2.9 g/dL (3.4-5.0); Albumin/Globulin Ratio 0.8 (0.8-1.8); Bilirubin, Total 0.3 mg/dL (0.1-1.0); Bun/Creatinine Ratio 16.7 (12.0-20.0); Calcium, Blood 9.3 mg/dL (8.5-10.1); Creatinine, Blood 0.66 mg/dL (0.40-1.00); Globulin, Blood 3.7 g/dL (2.2-4.0); Potassium, Blood 3.9 mmol/L (3.5-5.5); Total Protein, Blood 6.6 g/dL (6.4-8.2)
[2023-03-27 07:23] VITALS: BP 145/78
[2023-03-27] MEDS ORDERED: FURO20 PO (11:53)
[2023-03-27] MEDS ORDERED: Aspir 8181 MG PO (11:53)
[2023-03-27] MEDS ORDERED: METO25ER PO (11:54)
[2023-03-27] MEDS ORDERED: LOSA25 PO (11:54)
--- NOTE | 2023-03-27 18:38 | NUR ---
DC AT 1433- PT LEFT IN STABLE CONDITION VIA WC. BROUGHT DOWN BY METAL SPRAY OPERATOR. PT LEFT WITH ALL BELONGINGS.
[2023-03-28 23:14] LABS: ANTI-NUCLEAR AB ANA,IGG ELISA None Detected (None Detected)
[2023-03-28 23:26] LABS: MITOCHONDRIAL (M2) AB,IGG 2.7 Units (0.0-24.9)
== END 2023-03-27 14:33 | disposition home or self-care (01) | DRG 280 ==
LOC: ER 04:06 → MEDS 04:07 → ENPENDDIS 03-27 10:31 → MEDS 03-27 14:33
PROVIDERS: Emergency Medicine; Internal Medicine; ADMIT Internal Medicine
DX: I44.7 Left bundle-branch block, unspecified (principal); I21.A1 Myocardial infarction type 2; E43 Unspecified severe protein-calorie malnutrition; I42.9 Cardiomyopathy, unspecified; I50.22 Chronic systolic (congestive) heart failure; J44.1 Chronic obstructive pulmonary disease with (acute) exacerbation; I08.3 Combined rheumatic disorders of mitral, aortic and tricuspid valves; J43.9 Emphysema, unspecified; E87.6 Hypokalemia; R79.89 Other specified abnormal findings of blood chemistry; I25.10 Atherosclerotic heart disease of native coronary artery without angina pectoris; I11.0 Hypertensive heart disease with heart failure; K76.0 Fatty (change of) liver, not elsewhere classified; D64.9 Anemia, unspecified; E86.0 Dehydration; F32.A Depression, unspecified; Z90.49 Acquired absence of other specified parts of digestive tract; Z98.890 Other specified postprocedural states; Z88.0 Allergy status to penicillin; Z91.013 Allergy to seafood; Z99.81 Dependence on supplemental oxygen; Z79.51 Long term (current) use of inhaled steroids; Z79.899 Other long term (current) drug therapy; Z68.22 Body mass index [BMI] 22.0-22.9, adult; Z91.81 History of falling
CPT/HCPCS: 0241U; 36415; 71046; 71260; 76705; 78452; 80053; 80074; 81001; 82550; 83605; 83735; 83880; 84100; 84484; 85025; 85379; 85610; 85730; 86850; 86900; 86901; 87070; 87205; 93005; 93010; 93017; 93246; 93306; 93308; 93321; 94640; 94664; 94760; 96365-59; 99285-25; A9270; A9500; J0280; J0456; J1650; J2785; J7030; J7040; J7050; J7060; Q9967

== ENCOUNTER 2023-12-27 09:48 | Emergency (ER) | payer MEDICARE ==
[~2023-12-27] VITALS: Ht 139.7 cm; Wt 43.5 kg
[~2023-12-27 09:48] MED LIST changes: +Aspir 8181 MG PO; +FURO20 PO; +LOSA25 PO; +METO25ER PO
[2023-12-27] MEDS ORDERED: Simvastatin40 MG PO (11:06)
[2023-12-27] MEDS ORDERED: OXYC5 PO (11:06)
[2023-12-27] MEDS ORDERED: FUROSEMIDE40 MG PO (11:06)
[2023-12-27] MEDS ORDERED: BUPROPION HCL200 M1 PO (11:06)
[2023-12-27] MEDS ORDERED: ONDANSETRON ODT16 MG PO (11:06)
[2023-12-27] MEDS ORDERED: Potassium Chlo20 ME1 PO (11:06)
[2023-12-27 11:12] LABS: BASOPHILS ABSOLUTE AUTO 0.04 K/mm3 (0.00-0.23); BASOPHILS PERCENT AUTO 1 % (0-2); EOSINOPHILS PERCENT AUTO 5 % (0-6); Hemoglobin 12.8 g/dL (11.5-16.0); IMMATURE GRAN ABSOLUTE AUTO 0.01 K/mm3 (0.00-0.10); IMMATURE GRAN PERCENT AUTO 0 % (0-1); LYMPHOCYTES ABSOLUTE AUTO 1.75 K/mm3 (0.84-5.20); LYMPHOCYTES PERCENT AUTO 28 % (21-46); MONOCYTES ABSOLUTE AUTO 0.68 K/mm3 (0.16-1.47); MONOCYTES PERCENT AUTO 11 % (4-13); Mean Corpuscular HGB 31.1 pg (26.0-34.0); Mean Corpuscular HGB Conc 32.8 g/dL (31.5-36.5); Mean Corpuscular Volume 95 fL (80-100); Mean Platelet Volume 9.6 fL (9.1-12.4); NEUTROPHILS ABSOLUTE AUTO 3.46 K/mm3 (1.96-9.15); NEUTROPHILS PERCENT AUTO 56 % (41-73); Platelet Count 267 K/mm3 (150-400); RDW Coefficient Variation 13.2 % (11.7-14.2); RDW Standard Deviation 46.5 fL (35.1-46.3); Red Blood Cell Count 4.12 M/mm3 (3.80-5.20); White Blood Cell Count 6.24 K/mm3 (4.00-11.30)
[2023-12-27] MEDS ORDERED: Magnesium Sulf 2 GM/Water 50ML 50 ML IV ONE (11:20)
[2023-12-27] MEDS ORDERED: Famotidine 10 MG/ML 2ML Vial IV ONE (11:20)
[2023-12-27 12:26] LABS: Magnesium, Blood 2.3 mg/dL (1.6-2.4)
[2023-12-27 12:27] LABS: Albumin, Blood 3.5 g/dL (3.4-5.0); Bilirubin, Total 0.3 mg/dL (0.1-1.0); Bun/Creatinine Ratio 47.1 (12.0-20.0); Calcium, Blood 9.1 mg/dL (8.5-10.1); Creatinine, Blood 0.81 mg/dL (0.40-1.00); Globulin, Blood 3.6 g/dL (2.2-4.0); Potassium, Blood 3.8 mmol/L (3.5-5.5); Total Protein, Blood 7.1 g/dL (6.4-8.2)
[2023-12-27 14:00] VITALS: BP 130/68
[2023-12-27] MEDS ORDERED: FAMO20 PO (14:16)
[2023-12-27 15:05] LABS: Source, Urine Straight Cath
[2023-12-27 15:07] LABS: Appearance, Urine Clear (Clear); Bilirubin, Urine Neg (Neg); Blood, Urine Neg (Neg); Color, Urine Yellow (P-Yellow); Glucose Qualitative, Urine Neg (Neg); Ketones, Urine Neg (Neg); Leukocyte Esterase, Urine Neg (Neg); Nitrite, Urine Neg (Neg); Protein, Urine Neg (Neg); Specific Gravity, Urine 1.015 (1.003-1.022); Urobilinogen, Urine NORM (Normal)
== END 2023-12-27 14:25 | disposition home or self-care (01) ==
LOC: ER 09:48
PROVIDERS: Student in an Organized Health Care Education/Training Program
DX: R10.13 Epigastric pain (principal); R94.31 Abnormal electrocardiogram [ECG] [EKG]; J44.9 Chronic obstructive pulmonary disease, unspecified; I10 Essential (primary) hypertension; Z87.891 Personal history of nicotine dependence; Z79.51 Long term (current) use of inhaled steroids; Z79.899 Other long term (current) drug therapy; Z88.0 Allergy status to penicillin; Z91.013 Allergy to seafood
CPT/HCPCS: 51701; 71046; 74177; 80053; 81003; 83690; 83735; 84484; 85025; 93005; 93010; 96365-59; 96366; 96375; 99284-25; J3475; Q9967

== ENCOUNTER 2024-01-15 03:57 | Inpatient (IN) | payer MEDICARE ==
[~2024-01-15] VITALS: Ht 149.9 cm; Wt 46.5 kg
[~2024-01-15 03:57] MED LIST changes: +ATOR80 PO; +BUPROPION HCL200 M1 PO; +ONDANSETRON ODT16 MG PO; +OXYC5 PO; +POTCHL20ER PO
[2024-01-15 04:14] LABS: BASOPHILS ABSOLUTE AUTO 0.09 K/mm3 (0.00-0.23); BASOPHILS PERCENT AUTO 1 % (0-2); EOSINOPHILS ABSOLUTE AUTO 0.62 K/mm3 (0.00-0.68); EOSINOPHILS PERCENT AUTO 5 % (0-6); Hematocrit 35.3 % (33.0-51.0); Hemoglobin 10.8 g/dL (11.5-16.0); IMMATURE GRAN PERCENT AUTO 1 % (0-1); LYMPHOCYTES ABSOLUTE AUTO 4.46 K/mm3 (0.84-5.20); LYMPHOCYTES PERCENT AUTO 37 % (21-46); MONOCYTES ABSOLUTE AUTO 0.84 K/mm3 (0.16-1.47); MONOCYTES PERCENT AUTO 7 % (4-13); Mean Corpuscular HGB 30.5 pg (26.0-34.0); Mean Corpuscular HGB Conc 30.6 g/dL (31.5-36.5); Mean Corpuscular Volume 100 fL (80-100); Mean Platelet Volume 8.9 fL (9.1-12.4); NEUTROPHILS ABSOLUTE AUTO 5.84 K/mm3 (1.96-9.15); NEUTROPHILS PERCENT AUTO 49 % (41-73); Platelet Count 481 K/mm3 (150-400); RDW Coefficient Variation 13.2 % (11.7-14.2); Red Blood Cell Count 3.54 M/mm3 (3.80-5.20); White Blood Cell Count 11.95 K/mm3 (4.00-11.30)
[2024-01-15 04:22] LABS: Base Excess Venous -0.6 mmol/L; Bicarbonate Venous 22.1 mmol/L (24.0-30.0); PCO2 Venous 80.3 mmHg (38-42)
[2024-01-15 04:27] LABS: pH Blood Venous 7.15 (7.34-7.37)
[2024-01-15 04:39] LABS: Alanine Aminotransfer (ALT/SGP 33 U/L (12-78); Albumin, Blood 3.1 g/dL (3.4-5.0); Albumin/Globulin Ratio 0.8 (0.8-1.8); Alk Phos 87 U/L (50-136); Anion Gap 11 mmol/L (3-11); Aspartate Aminotrans (AST/SGOT 50 U/L (12-37); Bilirubin, Total <0.1 mg/dL (0.1-1.0); Blood Urea Nitrogen 23 mg/dL (8-24); Bun/Creatinine Ratio 29.4 (12.0-20.0); CO2, Blood 29 mmol/L (21-32); Calcium, Blood 8.7 mg/dL (8.5-10.1); Chloride, Blood 103 mmol/L (98-108); Creatinine, Blood 0.78 mg/dL (0.40-1.00); D-Dimer, Quantitative 4.41 mg/L FEU (0.00-0.52); Globulin, Blood 3.8 g/dL (2.2-4.0); Glomerular Filtration Rate 77 (60-); Glucose, Blood 275 mg/dL (70-99); International Normalized Ratio 1.09; Potassium, Blood 3.6 mmol/L (3.5-5.5); Prothrombin Time Results 11.6 Sec (9.7-11.5); Sodium, Blood 139 mmol/L (136-145); Total Protein, Blood 6.9 g/dL (6.4-8.2)
[2024-01-15] MEDS ORDERED: FLU VACC TS2024-25(6MOS UP)/PF 45 MCG/0.5 ML SYRINGE IM ONE (05:40)
[2024-01-15] MEDS ORDERED: Ipratropium/Albuterol SulF 2.5-0.5MG/3 ML Amp INH SCH (06:15)
[2024-01-15] MEDS ORDERED: CefTRIAXone Sodium 1,000 MG in NS 100 ML IV SCH (06:22)
[2024-01-15] MEDS ORDERED: Azithromycin 500 MG in NS 250 ML IV SCH (06:34)
[2024-01-15] MEDS ORDERED: Insulin Human Lispro 100 Units/ML 3ML Syringe SC SCH (07:30)
[2024-01-15] MEDS ORDERED: Lactobacil 2-S.Thermo-Bifido 1 1 Cap PO SCH (09:00)
[2024-01-15] MEDS ORDERED: MethylPREDNISolone Sod Succ 125 MG Vial IV SCH (09:00)
[2024-01-15] MEDS ORDERED: Atorvastatin 40 MG Tab PO SCH (12:00)
[2024-01-15] MEDS ORDERED: Furosemide 10 MG/ML 4ML Vial IV SCH (12:00)
[2024-01-15] MEDS ORDERED: Aspirin 81 MG TabEC PO SCH (12:00)
[2024-01-15] MEDS ORDERED: Carvedilol 3.125 MG Tab PO SCH (12:00)
[2024-01-15 12:42] VITALS: BP 101/67
[2024-01-15] MEDS ORDERED: Ipratropium/Albuterol SulF 2.5-0.5MG/3 ML Amp INH PRN (13:35)
[2024-01-15 16:15] VITALS: BP 100/59
--- NOTE | 2024-01-15 18:43 | NUR ---
SHIFT SUMMARY [facility] ADMIT ARRIVED ON A GURNEY, SLIDE OVER WITH 3 STAFF MEMBERS. PT HAS BEEN ON NC SINCE ARRIVING FROM THE ER, PT WEARS 3 LITERS AT BASELINE. PT OXYGEN SATURATION HAS BEEN ABOVE 93% AND ABOVE THROUGHOUT SHIFT. VSS, PT HAS SOFT BLOOD PRESSURES. PT HAD FIRST HALF OF HER STRESS TEST TODAY, PT TO BE NPO AT 0600 ON 01/16/24. PT EF 35% WHICH IS DECREASED FROM 40-45% ON 03/26/23. PT IS RECIEVING LASIX AND HAS A PURWIK IN PLACE, HAS VOIDED 500 MLS OF YELLOW COLORED URINE. PT IS A+O X4, ABLE TO MAKE NEEDS KNOWN, CALL LIGHT IN REACH.
[2024-01-15 19:59] VITALS: BP 89/57
[2024-01-15] MEDS ORDERED: Furosemide 10 MG/ML 4ML Vial IV ONE (21:00)
[2024-01-15 21:29] VITALS: BP 95/61
--- NOTE | 2024-01-15 21:43 | NUR ---
CALL PLACED TO DR. PAZ REGARDING LASIX ONE TIME ORDER AND PT VITAL SIGNS. ONE TIME LASIX NOT GIVEN.
[2024-01-15 23:50] VITALS: BP 94/64
[2024-01-16] VITALS (10 sets, daily range): BP systolic 79–109; BP diastolic 48–76
--- NOTE | 2024-01-16 06:03 | NUR ---
PT STABLE THROUGHOUT THE SHIFT, NO DYSPNEA OR CHEST PAIN. PT WAS INTERMITTENTLY ON BIPAP BUT WAS UNABLE TO TOLERATE THE MASK FOR LONG D/T DISCOMFORT THE MASK/HEADGEAR CAUSED. PT DID MAINTAIN GOOD O2 SATS ON 2LO2 BY NASAL CANNULA. VITAL SIGNS WNL THOUGH BP WAS ON THE SOFTER SIDE. PT DID HAVE GOOD URINARY OUTPUT. PT AOX4, COOPERATIVE, ABLE TO USE CALL LIGHT AND MAKE NEEDS KNOWN. PT DID REMAIN IN BED THE ENTIRETY OF THE SHIFT. PT REMAINED IN LEFT SHOULDER IMMOBILIZER W/O PROBLEM. PT HAS BEEN NPO SINCE MIDNIGHT FOR STRESS TEST THIS AM.
[2024-01-16 07:01] LABS: BASOPHILS ABSOLUTE AUTO 0.02 K/mm3 (0.00-0.23); BASOPHILS PERCENT AUTO 0 % (0-2); EOSINOPHILS ABSOLUTE AUTO 0.02 K/mm3 (0.00-0.68); EOSINOPHILS PERCENT AUTO 0 % (0-6); Hematocrit 29.1 % (33.0-51.0); Hemoglobin 9.6 g/dL (11.5-16.0); IMMATURE GRAN ABSOLUTE AUTO 0.03 K/mm3 (0.00-0.10); IMMATURE GRAN PERCENT AUTO 0 % (0-1); LYMPHOCYTES ABSOLUTE AUTO 1.36 K/mm3 (0.84-5.20); LYMPHOCYTES PERCENT AUTO 12 % (21-46); MONOCYTES ABSOLUTE AUTO 0.93 K/mm3 (0.16-1.47); MONOCYTES PERCENT AUTO 8 % (4-13); Mean Corpuscular HGB 31.1 pg (26.0-34.0); NEUTROPHILS ABSOLUTE AUTO 9.03 K/mm3 (1.96-9.15); NEUTROPHILS PERCENT AUTO 79 % (41-73); Platelet Count 381 K/mm3 (150-400); RDW Coefficient Variation 13.4 % (11.7-14.2); RDW Standard Deviation 46.1 fL (35.1-46.3); Red Blood Cell Count 3.09 M/mm3 (3.80-5.20); White Blood Cell Count 11.39 K/mm3 (4.00-11.30)
[2024-01-16 07:03] LABS: Mean Corpuscular Volume 94 fL (80-100)
[2024-01-16 07:21] LABS: Albumin, Blood 2.7 g/dL (3.4-5.0); Albumin/Globulin Ratio 0.8 (0.8-1.8); Bilirubin, Total 0.2 mg/dL (0.1-1.0); Bun/Creatinine Ratio 37.4 (12.0-20.0); Calcium, Blood 8.6 mg/dL (8.5-10.1); Creatinine, Blood 0.64 mg/dL (0.40-1.00); Globulin, Blood 3.4 g/dL (2.2-4.0); Potassium, Blood 3.6 mmol/L (3.5-5.5); Total Protein, Blood 6.1 g/dL (6.4-8.2)
[2024-01-16] MEDS ORDERED: ASPI81CH PO (07:33)
[2024-01-16] MEDS ORDERED: Aminophylline 250MG / 10ML 10 ML Vial ONE (08:13)
[2024-01-16] MEDS ORDERED: Regadenoson 0.4 MG/5 ML SYRINGE ONE (08:13)
[2024-01-16] MEDS ORDERED: Furosemide 10 MG / ML 2ML Vial IV SCH (09:00)
[2024-01-16] MEDS ORDERED: Enoxaparin 40 MG/0.4 ML SYR SC SCH (09:00)
--- NOTE | 2024-01-16 09:57 | NUR ---
AM NOTE this rn assumed care at 0700. vital signs stable. tele sinus rhyth,m 90s patient is alert and oriented x4. neuro is intact. patient is able to make needs known. denies pain, chest pain/pressure or shortness of breath. patient lung sounds clear and dim throughout. see shift assessment for further detials. andre in to see patient this am and discussed plan of care. plan of care is up to date.
[2024-01-16] MEDS ORDERED: Losartan Potassium 25 MG Tab PO SCH (14:00)
[2024-01-16] MEDS ORDERED: Empagliflozin 10 MG TAB PO SCH (14:00)
--- NOTE | 2024-01-16 17:21 | NUR ---
UPDATE-BLOOD PRESSURE this rn called md knowles to notify of soft blood pressyre, map <65. md knowles said to hold evening lasix and blood pressure meds and to recheck in an hour, if map <65 to call md knowles.
--- NOTE | 2024-01-16 18:56 | NUR ---
SHIFT SUMMARY patient blood pressure improved and map >65. patient on baseline oxygen 2l nc with spo2 >90%. patient denies chestpain/pressure, pain or shortness ofbreath. no acute changes throughout the shift. plan of care remains up to date.
[2024-01-17 03:27] VITALS: BP 104/71
[2024-01-17 04:15] LABS: BASOPHILS ABSOLUTE AUTO 0.06 K/mm3 (0.00-0.23); BASOPHILS PERCENT AUTO 1 % (0-2); EOSINOPHILS ABSOLUTE AUTO 0.24 K/mm3 (0.00-0.68); EOSINOPHILS PERCENT AUTO 3 % (0-6); Hematocrit 30.9 % (33.0-51.0); Hemoglobin 10.2 g/dL (11.5-16.0); IMMATURE GRAN ABSOLUTE AUTO 0.03 K/mm3 (0.00-0.10); IMMATURE GRAN PERCENT AUTO 0 % (0-1); LYMPHOCYTES ABSOLUTE AUTO 2.28 K/mm3 (0.84-5.20); LYMPHOCYTES PERCENT AUTO 24 % (21-46); MONOCYTES ABSOLUTE AUTO 0.72 K/mm3 (0.16-1.47); MONOCYTES PERCENT AUTO 8 % (4-13); Mean Corpuscular HGB 31.5 pg (26.0-34.0); Mean Corpuscular Volume 95 fL (80-100); Mean Platelet Volume 9.5 fL (9.1-12.4); NEUTROPHILS ABSOLUTE AUTO 6.02 K/mm3 (1.96-9.15); NEUTROPHILS PERCENT AUTO 64 % (41-73); Platelet Count 429 K/mm3 (150-400); RDW Coefficient Variation 13.4 % (11.7-14.2); RDW Standard Deviation 46.5 fL (35.1-46.3); Red Blood Cell Count 3.24 M/mm3 (3.80-5.20); White Blood Cell Count 9.35 K/mm3 (4.00-11.30)
[2024-01-17 04:33] LABS: Bun/Creatinine Ratio 32.3 (12.0-20.0); Calcium, Blood 8.2 mg/dL (8.5-10.1); Creatinine, Blood 0.9 mg/dL (0.40-1.00); Potassium, Blood 3.6 mmol/L (3.5-5.5)
--- NOTE | 2024-01-17 06:39 | NUR ---
shift summary- patient had a good night. up to the bathroom a few times to have a BM without success. call placed to resident to start miralax this morning, BID. No other needs noted throughout the night. Patient continues to be on 2L of oxygen with spo2 above 92%.
[2024-01-17 07:39] VITALS: BP 102/65
[2024-01-17] MEDS ORDERED: Polyethylene Glycol 3350 17 gm PO SCH (09:00)
[2024-01-17] MEDS ORDERED: Furosemide 20 MG Tab PO SCH (09:00)
[2024-01-17] MEDS ORDERED: Empagliflozin 10 MG TAB PO SCH (09:00)
[2024-01-17] MEDS ORDERED: Losartan Potassium 25 MG Tab PO SCH (09:00)
[2024-01-17] MEDS ORDERED: JARDIANCE10 MG PO (11:56)
[2024-01-17] MEDS ORDERED: CARV3.125 PO (11:56)
--- NOTE | 2024-01-17 13:30 | NUR ---
DISCHARGE HOME PT A&O X4. VSS. SPO2 > 92% ON 1L NC. PT REPORTS HAVING OXYGEN AT HOME. DISCHARGE INSTRUCTIONS REVIEWED W/ PT & SENT HOME W/ PT. PIV REMOVED. PT TAKEN OUT IN WHEELCHAIR W/ BELONGINGS @ APPROX 1330.
[2024-01-19] MEDS ORDERED: MIRALAX17 GM PO (03:22)
== END 2024-01-17 13:36 | disposition home or self-care (01) | DRG 280 ==
LOC: ER 03:57 → ERHOLD 03:58 → PCU 03:58
PROVIDERS: Emergency Medicine; Student in an Organized Health Care Education/Training Program; ADMIT Internal Medicine
PROC: 5A09357 Assistance with Respiratory Ventilation, Less than 24 Consecutive Hours, Continuous Positive Airway Pressure (ICD-10-PCS; principal; 2024-01-16)
DX: I11.0 Hypertensive heart disease with heart failure (principal); I50.23 Acute on chronic systolic (congestive) heart failure; I21.A1 Myocardial infarction type 2; J96.21 Acute and chronic respiratory failure with hypoxia; J96.22 Acute and chronic respiratory failure with hypercapnia; R65.20 Severe sepsis without septic shock; J44.1 Chronic obstructive pulmonary disease with (acute) exacerbation; E87.21 Acute metabolic acidosis; I44.7 Left bundle-branch block, unspecified; F32.A Depression, unspecified; Z87.891 Personal history of nicotine dependence; Z88.0 Allergy status to penicillin; Z91.013 Allergy to seafood; Z79.891 Long term (current) use of opiate analgesic; Z79.899 Other long term (current) drug therapy; Z90.49 Acquired absence of other specified parts of digestive tract; Z98.890 Other specified postprocedural states; I25.10 Atherosclerotic heart disease of native coronary artery without angina pectoris
CPT/HCPCS: 36415; 71260; 78452; 80048; 80053; 82803; 82947; 83036; 83605; 83880; 84145; 84484; 85025; 85379; 85610; 85730; 93005; 93010; 93017; 93306; 93970; 94640; 94660; 94664; 94761; 94762; 96365-59; 96375-59; 97110; 97116; 97162; 99285-25; A9270; A9500; G0378; J0280; J0456; J0696; J1650; J1940; J2785; J2919; J7050; Q9967

== ENCOUNTER 2024-01-26 02:58 | Observation (INO) | payer MEDICARE ==
[~2024-01-26] VITALS: Ht 139.7 cm; Wt 45.4 kg
[~2024-01-26 02:58] MED LIST changes: +ASPI81CH PO; +JARDIANCE10 MG PO; +MIRALAX17 GM PO
[2024-01-26] MEDS ORDERED: Ipratropium/Albuterol SulF 2.5-0.5MG/3 ML Amp INH ONE (03:25)
[2024-01-26] MEDS ORDERED: MethylPREDNISolone Sod Succ 125 MG Vial IV ONE (03:25)
[2024-01-26 03:41] LABS: PCO2 Venous 63.1 mmHg (38-42)
[2024-01-26 03:42] LABS: Base Excess Venous -0.7 mmol/L; Bicarbonate Venous 22.2 mmol/L (24.0-30.0)
[2024-01-26 03:44] LABS: pH Blood Venous 7.24 (7.34-7.37)
[2024-01-26 03:53] LABS: BASOPHILS ABSOLUTE AUTO 0.12 K/mm3 (0.00-0.23); BASOPHILS PERCENT AUTO 1 % (0-2); EOSINOPHILS ABSOLUTE AUTO 0.39 K/mm3 (0.00-0.68); EOSINOPHILS PERCENT AUTO 3 % (0-6); Hematocrit 40.2 % (33.0-51.0); Hemoglobin 12.8 g/dL (11.5-16.0); IMMATURE GRAN ABSOLUTE AUTO 0.09 K/mm3 (0.00-0.10); IMMATURE GRAN PERCENT AUTO 1 % (0-1); LYMPHOCYTES ABSOLUTE AUTO 2.24 K/mm3 (0.84-5.20); LYMPHOCYTES PERCENT AUTO 17 % (21-46); MONOCYTES ABSOLUTE AUTO 0.95 K/mm3 (0.16-1.47); MONOCYTES PERCENT AUTO 7 % (4-13); Mean Corpuscular HGB 30.8 pg (26.0-34.0); Mean Corpuscular HGB Conc 31.8 g/dL (31.5-36.5); Mean Corpuscular Volume 97 fL (80-100); NEUTROPHILS ABSOLUTE AUTO 9.38 K/mm3 (1.96-9.15); NEUTROPHILS PERCENT AUTO 71 % (41-73); RDW Coefficient Variation 13.3 % (11.7-14.2); RDW Standard Deviation 47.9 fL (35.1-46.3); Red Blood Cell Count 4.16 M/mm3 (3.80-5.20); White Blood Cell Count 13.17 K/mm3 (4.00-11.30)
[2024-01-26 04:05] LABS: Albumin, Blood 3.5 g/dL (3.4-5.0); Albumin/Globulin Ratio 0.9 (0.8-1.8); Bilirubin, Total 0.3 mg/dL (0.1-1.0); Creatinine, Blood 0.77 mg/dL (0.40-1.00); Globulin, Blood 4.1 g/dL (2.2-4.0); Potassium, Blood 3.6 mmol/L (3.5-5.5); Total Protein, Blood 7.6 g/dL (6.4-8.2)
[2024-01-26 04:12] LABS: Platelet Count 460 K/mm3 (150-400)
[2024-01-26] MEDS ORDERED: Azithromycin 500 MG in NS 250 ML IV ONE (04:30)
[2024-01-26] MEDS ORDERED: Acetaminophen 325 MG TABLET PO PRN (05:15)
[2024-01-26] MEDS ORDERED: FLU VACC TS2024-25(6MOS UP)/PF 45 MCG/0.5 ML SYRINGE IM ONE (05:15)
[2024-01-26] MEDS ORDERED: OxyCODONE HCL 5 MG TAB PO PRN (05:25)
[2024-01-26] MEDS ORDERED: MethylPREDNISolone Sod Succ 125 MG Vial IV SCH (06:00)
[2024-01-26] MEDS ORDERED: Ondansetron HCl 2 MG / ML 2ML Vial IV PRN (06:15)
[2024-01-26] MEDS ORDERED: Furosemide 20 MG Tab PO ONE (07:00)
[2024-01-26 07:34] LABS: Base Excess Venous -3.2 mmol/L; Bicarbonate Venous 22.3 mmol/L (24.0-30.0); PCO2 Venous 33.6 mmHg (38-42); pH Blood Venous 7.41 (7.34-7.37)
[2024-01-26] MEDS ORDERED: Metoprolol Succinate 25 MG TABCR PO SCH (09:00)
[2024-01-26] MEDS ORDERED: Potassium Chloride 20 MEQ TabCR PO SCH (09:00)
[2024-01-26] MEDS ORDERED: Lactobacil 2-S.Thermo-Bifido 1 1 Cap PO SCH (09:00)
[2024-01-26] MEDS ORDERED: Furosemide 20 MG Tab PO SCH (09:00)
[2024-01-26] MEDS ORDERED: Aspirin 81 MG Chew PO SCH (09:00)
[2024-01-26] MEDS ORDERED: Polyethylene Glycol 3350 17 gm PO SCH (09:00)
[2024-01-26] MEDS ORDERED: PredniSONE 20 MG Tab PO SCH (09:00)
[2024-01-26] MEDS ORDERED: Empagliflozin 10 MG TAB PO SCH (09:00)
[2024-01-26] MEDS ORDERED: Atorvastatin 40 MG Tab PO SCH (09:00)
[2024-01-26] MEDS ORDERED: Famotidine 20 MG Tab PO SCH (09:00)
[2024-01-26] MEDS ORDERED: GuaiFENesin 600 MG TabCR PO SCH (09:00)
[2024-01-26 15:29] VITALS: BP 87/55
[2024-01-26] MEDS ORDERED: ONDA4 PO (15:38)
[2024-01-26] MEDS ORDERED: Albuterol 2.5 MG/3 ML VIAL INH PRN (15:55)
--- NOTE | 2024-01-26 16:08 | NUR ---
CALLED DR OCHOA RE LOW BP. SPOKE TO DR OCHOA. OKAY ALLOW BP LOW IN 80-S IF ASYMPTOMATIC. NO NEW ORDERS.
--- NOTE | 2024-01-26 18:26 | NUR ---
PT QUITE PLEASANT SINCE ADMIT. ABLE TO TITRATE DOWN O2 TO 2L. MAINTAINING >95%. NO C/O PAIN. SON IN TO VISIT TODAY. ADMIT DONE. LUNGS DIM IN BASES, OTHERWISE CLEAR. LOW BP NOTED. CALLED TO DISCUSS, NO NEW ORDERS. OKAY TO LEAVE IF ASYMPTOMATIC. BED IN LOW POSITION, CALL LITE IN REACH CALLS APPROP
[2024-01-26 19:32] VITALS: BP 99/68
[2024-01-26] MEDS ORDERED: Carvedilol 3.125 MG Tab PO SCH (21:00)
[2024-01-27 02:26] VITALS: BP 95/56
[2024-01-27 05:07] LABS: BASOPHILS ABSOLUTE AUTO 0.01 K/mm3 (0.00-0.23); BASOPHILS PERCENT AUTO 0 % (0-2); EOSINOPHILS PERCENT AUTO 0 % (0-6); Hemoglobin 10.1 g/dL (11.5-16.0); IMMATURE GRAN ABSOLUTE AUTO 0.05 K/mm3 (0.00-0.10); IMMATURE GRAN PERCENT AUTO 0 % (0-1); LYMPHOCYTES ABSOLUTE AUTO 1.27 K/mm3 (0.84-5.20); LYMPHOCYTES PERCENT AUTO 10 % (21-46); MONOCYTES ABSOLUTE AUTO 0.74 K/mm3 (0.16-1.47); MONOCYTES PERCENT AUTO 6 % (4-13); Mean Corpuscular HGB 30.6 pg (26.0-34.0); Mean Corpuscular HGB Conc 31.6 g/dL (31.5-36.5); Mean Corpuscular Volume 97 fL (80-100); Mean Platelet Volume 9.6 fL (9.1-12.4); NEUTROPHILS ABSOLUTE AUTO 10.78 K/mm3 (1.96-9.15); NEUTROPHILS PERCENT AUTO 84 % (41-73); Platelet Count 354 K/mm3 (150-400); RDW Coefficient Variation 13.2 % (11.7-14.2); RDW Standard Deviation 47.3 fL (35.1-46.3); White Blood Cell Count 12.85 K/mm3 (4.00-11.30)
[2024-01-27] MEDS ORDERED: NS 250 ML IV PRN (05:30)
[2024-01-27 05:31] LABS: Albumin, Blood 2.8 g/dL (3.4-5.0); Albumin/Globulin Ratio 0.8 (0.8-1.8); Bilirubin, Total 0.3 mg/dL (0.1-1.0); Bun/Creatinine Ratio 31.7 (12.0-20.0); Calcium, Blood 8.7 mg/dL (8.5-10.1); Creatinine, Blood 0.73 mg/dL (0.40-1.00); Globulin, Blood 3.5 g/dL (2.2-4.0); Potassium, Blood 4.5 mmol/L (3.5-5.5); Total Protein, Blood 6.3 g/dL (6.4-8.2)
[2024-01-27] MEDS ORDERED: Azithromycin 500 MG in NS 250 ML IV SCH (06:00)
--- NOTE | 2024-01-27 07:28 | NUR ---
AO4. ON 2 L NC SATTING HIGH 90S, IND TO BATHROOM WITH SBA FOR SAFETY, N.O. AZITHROMYCIN, SHORTLY AFTER STARTING PT REPORTED BURNING, COMPROMISED LAC IV , STARTED 22 GAUGE PIV TO R LAT FA, FLUSHED WELL W RETURN, RESTARTED ABX, TOLERATING WELL. CALL LIGHT WN REACH FALL PRECAUTIONS MAINTAINED.
[2024-01-27 07:31] VITALS: BP 97/71
[2024-01-27] MEDS ORDERED: Enoxaparin 40 MG/0.4 ML SYR SC SCH (09:00)
[2024-01-27] MEDS ORDERED: GUAI600T33 PO (09:50)
[2024-01-27] MEDS ORDERED: PRED20 PO (09:51)
[2024-01-27] MEDS ORDERED: METO25ER PO (09:51)
[2024-01-27] MEDS ORDERED: ALBU90OI INH (09:53)
[2024-01-27] MEDS ORDERED: AIRDUO DIGIHAL1 EAC2 INH (09:55)
[2024-01-27] MEDS ORDERED: IPRAT-ALBUT 0.5-3 ML INH (09:57)
[2024-01-27] MEDS ORDERED: MIDO5 PO (10:01)
--- NOTE | 2024-01-27 15:31 | NUR ---
1435 PT DISCHARGE REVIEWED WITH PT AND SON. VERBALIZED UNDERSTANDING MEDS AND INST. IV PULLED AND TELE REMOVED BY AIDE. PT WHEELED TO DOOR AT 1434
== END 2024-01-27 14:50 | disposition home health service (06) ==
LOC: ER 02:58 → ERHOLD 03:00 → ER 05:11 → ERHOLD 10:25 → MEDS 15:17 → ENPENDDIS 01-27 09:26 → MEDS 01-27 14:50
PROVIDERS: Emergency Medicine; ADMIT Student in an Organized Health Care Education/Training Program
DX: J44.1 Chronic obstructive pulmonary disease with (acute) exacerbation (principal); J96.22 Acute and chronic respiratory failure with hypercapnia; J96.21 Acute and chronic respiratory failure with hypoxia; I11.0 Hypertensive heart disease with heart failure; I50.22 Chronic systolic (congestive) heart failure; I25.2 Old myocardial infarction; Z79.899 Other long term (current) drug therapy; Z88.0 Allergy status to penicillin; Z87.891 Personal history of nicotine dependence; Z91.013 Allergy to seafood; Z99.81 Dependence on supplemental oxygen
CPT/HCPCS: 36415; 71045; 71260; 80053; 82803; 83735; 83880; 84484; 85025; 85379; 93005; 93010; 94640; 94660; 94664; 94762; 96372; 96374; 99285-25; A9270; G0378; J0456; J1650; J2405; J2919; J7050; J7512; Q9967

== ENCOUNTER 2024-03-29 10:12 | Observation (INO) | payer MEDICARE ==
[~2024-03-29] VITALS: Ht 142.2 cm; Wt 40.6 kg
[~2024-03-29 10:12] MED LIST changes: +AIRDUO DIGIHAL1 EAC2 INH; +DELTASONE20 MG PO; +DOXY100 PO; +GUAI600T33 PO; +MIDO5 PO; +ONDA4 PO
[2024-03-29] MEDS ORDERED: Ipratropium/Albuterol SulF 2.5-0.5MG/3 ML Amp INH PRN (10:25)
[2024-03-29 12:00] LABS: BASOPHILS ABSOLUTE AUTO 0.01 K/mm3 (0.00-0.23); BASOPHILS PERCENT AUTO 0 % (0-2); EOSINOPHILS PERCENT AUTO 0 % (0-6); Hematocrit 37.8 % (33.0-51.0); Hemoglobin 12.1 g/dL (11.5-16.0); IMMATURE GRAN ABSOLUTE AUTO 0.17 K/mm3 (0.00-0.10); IMMATURE GRAN PERCENT AUTO 1 % (0-1); LYMPHOCYTES ABSOLUTE AUTO 0.87 K/mm3 (0.84-5.20); LYMPHOCYTES PERCENT AUTO 5 % (21-46); MONOCYTES ABSOLUTE AUTO 0.52 K/mm3 (0.16-1.47); MONOCYTES PERCENT AUTO 3 % (4-13); Mean Corpuscular HGB 30.4 pg (26.0-34.0); Mean Corpuscular Volume 95 fL (80-100); Mean Platelet Volume 9.8 fL (9.1-12.4); NEUTROPHILS ABSOLUTE AUTO 15.04 K/mm3 (1.96-9.15); NEUTROPHILS PERCENT AUTO 91 % (41-73); Platelet Count 261 K/mm3 (150-400); RDW Coefficient Variation 13.8 % (11.7-14.2); RDW Standard Deviation 47.9 fL (35.1-46.3); Red Blood Cell Count 3.98 M/mm3 (3.80-5.20); White Blood Cell Count 16.61 K/mm3 (4.00-11.30)
[2024-03-29 12:16] LABS: Albumin, Blood 3.7 g/dL (3.4-5.0); Bilirubin, Total 0.3 mg/dL (0.1-1.0); Bun/Creatinine Ratio 23.3 (12.0-20.0); Calcium, Blood 8.9 mg/dL (8.5-10.1); Creatinine, Blood 0.73 mg/dL (0.40-1.00); Globulin, Blood 3.8 g/dL (2.2-4.0); Potassium, Blood 3.5 mmol/L (3.5-5.5); Total Protein, Blood 7.5 g/dL (6.4-8.2)
[2024-03-29] MEDS ORDERED: NS 500 ML IV SCH (12:35)
[2024-03-29] MEDS ORDERED: CefTRIAXone Sodium 1,000 MG in NS 100 ML IV ONE (12:35)
[2024-03-29] MEDS ORDERED: FLU VACC TS2024-25(6MOS UP)/PF 45 MCG/0.5 ML SYRINGE IM SCH (14:45)
[2024-03-29 15:29] LABS: CORONAVIRUS COVID-19 AG Negative (NEGATIVE); INFLUENZA A AG Negative (NEGATIVE); INFLUENZA B AG Negative (NEGATIVE)
[2024-03-29] MEDS ORDERED: Azithromycin 500 MG in NS 250 ML IV SCH (15:55)
[2024-03-29] MEDS ORDERED: Furosemide 10 MG/ML 4ML Vial IV SCH ×2 (16:00)
[2024-03-29] MEDS ORDERED: MethylPREDNISolone Sod Succ 125 MG Vial IV SCH (16:00)
[2024-03-29 16:12] VITALS: BP 124/99
[2024-03-29] MEDS ORDERED: Ipratropium/Albuterol SulF 2.5-0.5MG/3 ML Amp INH SCH (16:20)
[2024-03-29] MEDS ORDERED: Mometasone/Formoterol MDI 200/5 mcg 13 GM INH SCH (16:55)
--- NOTE | 2024-03-29 19:11 | NUR ---
ADMISSION NOTE. PT ARRIVED A/O, VSS, NO DISTRESS BUT O2 AT 4L NC, PT SATING IN THE MID 90S. ADMISSION DONE, TROPONIN CAME BACK ELEVATED AND DR FARRIS WAS NOTIFIED, ECG DONE AND PT PLACED ON MONITOR, PT STATED SHE HAD NOT CHEST PAIN AND FELT JUST FINE. NEW IV PLACED TO RIGHT FOREARM AND ANTIBIOTICS INFUSING. CALL LIGHT WITHIN REACH AND CAN MAKE NEEDS KNOWN.
[2024-03-29] MEDS ORDERED: NS 250 ML IV PRN (20:15)
[2024-03-29 20:47] VITALS: BP 122/77
[2024-03-29] MEDS ORDERED: CELEXA40 M1 PO (20:52)
[2024-03-29] MEDS ORDERED: CARV3.125 PO (20:59)
[2024-03-29] MEDS ORDERED: GuanFACINE HCl 1 MG Tab PO SCH (21:00)
[2024-03-29] MEDS ORDERED: JARDIANCE10 MG PO (21:00)
[2024-03-29] MEDS ORDERED: Metoprolol Tartrate 25 MG Tab PO ONE (21:00)
[2024-03-29] MEDS ORDERED: Lactobacil 2-S.Thermo-Bifido 1 1 Cap PO SCH ×2 (21:00)
[2024-03-29] MEDS ORDERED: Famotidine 20 MG Tab PO SCH (21:00)
--- NOTE | 2024-03-29 21:01 | NUR ---
NOTIFIED BY [employer] THAT PT HAD 7-8 SECOND RUN OF SVT. PT ASSESSED AND ASYMPTOMATIC. HOSPITALIST NOTIFIED THAT PT HAD ST ELEVATION DURING DAY SHIFT AND ADMITTING MD AWARE, WELL TROPONINS OF 286, 822 WITH THIRD DRAW CURRENTLY BEING DRAWN. HOSPITALIST NOTIFIED THAT PT HAD NOT RECEIVED HOME LOPRESSOR 12.5MG SINCE 03/28/24, SO ONE TIME DOSE OF LOPRESSOR 12.5 ORDERED AND INSTRUCTIONS GIVEN TO MONITOR TROPONIN TRENDING AND TELEMETRY.
[2024-03-30] MEDS ORDERED: Ipratropium/Albuterol SulF 2.5-0.5MG/3 ML Amp INH SCH (02:15)
[2024-03-30 03:13] VITALS: BP 120/86
--- NOTE | 2024-03-30 04:57 | NUR ---
SHIFT SUMMARY NOC PT A/O X 4. PLEASANT AND COOPERATIVE WITH CARE. AT BEGINNING OF SHIFT PT HAD SVT RUN OF 7-8 SECONDS. PT ASYPTOMATIC WHEN ASSESSED, AND HOSPITALIST NOTIFIED OF SVT RUN WELL TROPONIN OF 286, 822, PT RECEIVED ONE TIME DOSE PO LOPRESSOR 12.5MG WHICH IS HOME DOSE THAT THEY HAD NOT HAD SINCE SUNDAY AM. PT FINAL TROPONIN 964 AND HOSPITALIST NOTIFIED AND NO FURTHER INTERVENTIONS CURRENTLY. PT ON TELE AND NOW SINUS RHYTHM/BBB IN 70'S. PT GOT FIRST 2 DOSES OF IV ABX DURING DAY YESTERDAY. PT ON 3L/NC SPO2 >92%. PT CURRENTLY RESTING WITH BED IN LOWEST POSITION, AND CALL LIGHT WITHIN REACH.
--- NOTE | 2024-03-30 06:05 | NUR ---
NOTIFIED BY [employer] THAT PT HAD SVT RUN OF 11 BEATS, PT ASSESSED AND ASYMPTOMATIC AND SLEEPING SOUNDLY. HOSPITALIST NOTIFIED AND ORDERS GIVEN TO DRAW MAGNESIUM AND TSH LABS.
[2024-03-30 06:30] LABS: BASOPHILS ABSOLUTE AUTO 0.01 K/mm3 (0.00-0.23); BASOPHILS PERCENT AUTO 0 % (0-2); EOSINOPHILS PERCENT AUTO 0 % (0-6); Hemoglobin 11.2 g/dL (11.5-16.0); IMMATURE GRAN ABSOLUTE AUTO 0.07 K/mm3 (0.00-0.10); IMMATURE GRAN PERCENT AUTO 1 % (0-1); LYMPHOCYTES ABSOLUTE AUTO 0.76 K/mm3 (0.84-5.20); LYMPHOCYTES PERCENT AUTO 9 % (21-46); MONOCYTES ABSOLUTE AUTO 0.18 K/mm3 (0.16-1.47); MONOCYTES PERCENT AUTO 2 % (4-13); Mean Corpuscular HGB 30.9 pg (26.0-34.0); Mean Corpuscular HGB Conc 32.9 g/dL (31.5-36.5); Mean Corpuscular Volume 94 fL (80-100); Mean Platelet Volume 10.2 fL (9.1-12.4); NEUTROPHILS PERCENT AUTO 88 % (41-73); Platelet Count 227 K/mm3 (150-400); RDW Coefficient Variation 13.6 % (11.7-14.2); RDW Standard Deviation 47.1 fL (35.1-46.3); Red Blood Cell Count 3.63 M/mm3 (3.80-5.20); White Blood Cell Count 8.52 K/mm3 (4.00-11.30)
[2024-03-30 06:47] LABS: Albumin, Blood 3.3 g/dL (3.4-5.0); Bilirubin, Total 0.4 mg/dL (0.1-1.0); Bun/Creatinine Ratio 31.9 (12.0-20.0); Creatinine, Blood 0.72 mg/dL (0.40-1.00); Globulin, Blood 3.2 g/dL (2.2-4.0); Magnesium, Blood 2.2 mg/dL (1.6-2.4); Potassium, Blood 3.5 mmol/L (3.5-5.5); Thyroid Stimulating Hormone 0.084 uIU/mL (0.360-4.800); Total Protein, Blood 6.5 g/dL (6.4-8.2)
[2024-03-30 07:12] VITALS: BP 114/88
[2024-03-30] MEDS ORDERED: Aspirin 81 MG Chew PO SCH (09:00)
[2024-03-30] MEDS ORDERED: Atorvastatin 40 MG Tab PO SCH (09:00)
[2024-03-30] MEDS ORDERED: Losartan Potassium 25 MG Tab PO SCH ×2 (09:00)
[2024-03-30] MEDS ORDERED: Spironolactone 12.5 MG TAB PO SCH (09:00)
[2024-03-30] MEDS ORDERED: Metoprolol Tartrate 25 MG Tab PO SCH (09:00)
[2024-03-30] MEDS ORDERED: Enoxaparin 30 MG/0.3 ML SYR SC SCH (09:00)
[2024-03-30] MEDS ORDERED: Polyethylene Glycol 3350 17 gm PO PRN (11:00)
[2024-03-30] MEDS ORDERED: LOSA25 PO (12:23)
[2024-03-30] MEDS ORDERED: VISBIOME 112.51 EACH PO (12:24)
[2024-03-30] MEDS ORDERED: ALDACTONE25 MG PO (12:24)
[2024-03-30] MEDS ORDERED: DOXY100 PO (12:25)
[2024-03-30] MEDS ORDERED: SPIRIVA RESPIMAT4 G3 INH (12:26)
[2024-03-30] MEDS ORDERED: CefTRIAXone Sodium 1,000 MG in NS 100 ML IV SCH (13:00)
--- NOTE | 2024-03-30 13:21 | NUR ---
DISCHARGE SUMMARY PATIENT DISCHARGED HOME WITH SON TO DRIVE. DISCHARGE PACKET GIVEN AND REVIEWED, QUESTIONS ANSWERED, VERBALIZED UNDERSTANDING. IV REMOVED WITHOUT COMPLICATION. INHALER SENT WITH PATIENT. MEDS FAXED TO [facility]
[2024-03-30] MEDS ORDERED: Albuterol 2.5 MG/3 ML VIAL INH PRN (13:35)
[2024-03-30] MEDS ORDERED: GuaiFENesin 600 MG TabCR PO SCH (21:00)
== END 2024-03-30 13:30 | disposition home or self-care (01) ==
LOC: ER 10:12 → MEDS 10:13
PROVIDERS: Family Medicine; Student in an Organized Health Care Education/Training Program; ADMIT Internal Medicine
DX: J44.1 Chronic obstructive pulmonary disease with (acute) exacerbation (principal); J96.21 Acute and chronic respiratory failure with hypoxia; I11.0 Hypertensive heart disease with heart failure; I50.22 Chronic systolic (congestive) heart failure; R65.10 Systemic inflammatory response syndrome (SIRS) of non-infectious origin without acute organ dysfunction; R79.89 Other specified abnormal findings of blood chemistry; I25.2 Old myocardial infarction; E78.5 Hyperlipidemia, unspecified; Z87.891 Personal history of nicotine dependence; Z88.0 Allergy status to penicillin; Z79.899 Other long term (current) drug therapy
CPT/HCPCS: 36415; 71046; 80053; 83605; 83735; 84145; 84439; 84443; 84484; 85025; 87040; 87428-QW; 93005; 93010; 94640; 94664; 94760; 96365; 96372; 96375; 96376; 99285-25; A9270; G0378; J0456; J0696; J1650; J1940; J2919; J7030; J7050